=== PATIENT | female | born 1940 | race African-American/Black ===

== ENCOUNTER 2020-01-31 02:04 | Inpatient (IN) | payer OTHER, MEDICARE ==
--- NOTE | 2020-01-31 02:20 | ER Document Report ---
ED General - General TRAVEL OUTSIDE OF THE [place] IN LAST 30 DAYS: No <MARLENY BURROWS IV - Last Filed: 01/31/20 05:46> <EDDY MOONEY - Last Filed: 01/31/20 10:23> - General Chief Complaint: Respiratory Distress Stated Complaint: RESPIRATORY DISTRESS Time Seen by Provider: 01/31/20 02:17 Primary Care Provider: TWYLA PACE MD [Primary Care Provider] - Follow up as needed - HPI Context: Chief Complaint: [Respiratory distress] [79-year-old female presents via EMS on CPAP for respiratory distress. History is limited because patient is short of breath and on CPAP. EMS reports that when they arrived to the patient's house, patient's pulse ox was 56% and initially only went up to 67% on CPAP ] Symptoms began:[Unknown] Onset: [Unknown] Timing: [Unknown] Quality: [No known] Intensity: [Severe] Location: [Respiratory system] [The pain does not migrate to a new location.] Aggravating factors: Unknown Relieving factors: Unknown Positive SOB [Denies] nausea [Denies] vomiting [Denies] sweats [Denies] fever [Denies] cough [Denies] calf or leg swelling or pain (MARLENY BURROWS IV) - Related Data Allergies/Adverse Reactions: No Known Allergies Allergy (Unverified 09/22/15 13:32) Past Medical History - General Information source: Patient, Emergency Med Personnel - Social History Smoking Status: Never Smoker Family History: Reviewed & Not Pertinent - Past Medical History Cardiac Medical History: Reports: Hx Hypertension Denies: Hx Heart Attack Pulmonary Medical History: Denies: Hx Asthma Neurological Medical History: Denies: Hx Cerebrovascular Accident, Hx Seizures GI Medical History: Denies: Hx Hepatitis, Hx Hiatal Hernia, Hx Ulcer Infectious Medical History: Denies: Hx Hepatitis Past Surgical History: Reports: Hx Pacemaker. Denies: Hx Mastectomy, Hx Open Heart Surgery <MARLENY BURROWS IV - Last Filed: 01/31/20 05:46> Review of Systems - Review of Systems -: Yes ROS unobtainable due to patient's medical condition <MARLENY BURROWS IV - Last Filed: 01/31/20 05:46> Physical Exam <MARLENY BURROWS IV - Last Filed: 01/31/20 05:46> - Vital signs Vitals: Pulse Resp BP Pulse Ox 97 28 H 162/68 H 83 L 01/31/20 02:08 01/31/20 02:08 01/31/20 02:08 01/31/20 02:08 - Notes Notes: CONSTITUTIONAL [Vital signs reviewed, Patient is in obvious respiratory distress and is on CPAP , HEAD [Atraumatic, Normocephalic.] EYES [Eyes are normal to inspection, No discharge from eyes, Extraocular muscles intact, Sclera are normal, Conjunctiva are normal.] ENT [External ears normal to inspection, Nose examination normal, Mouth normal to inspection.] NECK [Normal ROM, No jugular venous distention, No meningeal signs, ] RESPIRATORY CHEST [Chest is nontender, diffuse rhonchi noted, positive tachypnea CARDIOVASCULAR Tachycardia no murmurs, Normal S1 S2, No rub, No gallop.] ABDOMEN [Abdomen is nontender, No pulsatile masses, No other masses, Bowel sounds normal, No distension, No peritoneal signs, No hernias.] BACK [There is no CVA Tenderness, There is no tenderness to palpation, Normal inspection.] UPPER EXTREMITY [Inspection normal, No cyanosis, No clubbing, No edema, LOWER EXTREMITY [Inspection normal, No cyanosis, No clubbing, No edema, No calf tenderness, NEURO [No focal motor deficits, No focal sensory deficits, Speech normal.] SKIN [Skin is warm, Skin is dry, Skin is normal color.] PSYCHIATRIC Anxious affect. ] (MARLENY BURROWS IV) Course - Laboratory Results Result Diagrams: 01/31/20 02:28 01/31/20 02:28 Critical Laboratory Results Reviewed: No Critical Results Attending or Supervising Physician who Reviewed Labs: MARLENY BURROWS IV - Radiology Results Critical Radiology Results Reviewed: Yes Attending or Supervising Physician who Reviewed Radiology: MARLENY BURROWS IV - Radiology read suggestive of bilateral infiltrates - Consults Dr. Eagle Time consulted: 05:40 - requested ct to r/o pe <MARLENY BURROWS IV - Last Filed: 01/31/20 05:46> - Laboratory Results Result Diagrams: 01/31/20 02:28 01/31/20 02:28 <EDDY MOONEY - Last Filed: 01/31/20 10:23> - Vital Signs Vital signs: Temp Pulse Resp BP Pulse Ox 97.9 F 80 16 139/62 H 99 01/31/20 06:00 01/31/20 09:00 01/31/20 09:00 01/31/20 09:00 01/31/20 09:00 - Laboratory Results Laboratory Results Interpreted: 01/31/20 01/31/20 01/31/20 02:20 02:28 02:28 RDW 14.5 H PT 30.6 H Carbonic Acid 1.44 H ABG pH 7.32 L ABG pCO2 47.9 H ABG HCO3 24.1 H ABG Total CO2 25.6 H Potassium BUN Est GFR ( Amer) Est GFR (MDRD) Non-Af Glucose AST ALT Alkaline Phosphatase NT-Pro-B Natriuret Pep Urine Protein Urine Blood Leukocyte Esterase Rfl 01/31/20 01/31/20 01/31/20 02:28 02:28 08:15 RDW PT Carbonic Acid ABG pH ABG pCO2 ABG HCO3 ABG Total CO2 Potassium 3.5 L BUN 24 H Est GFR ( Amer) 58 L Est GFR (MDRD) Non-Af 48 L Glucose 321 H AST 78 H ALT 52 H Alkaline Phosphatase 177 H NT-Pro-B Natriuret Pep 616 H Urine Protein 30 H Urine Blood SMALL H Leukocyte Esterase Rfl TRACE H - EKG Interpretation by Me Additional EKG results interpreted by me: 01/31/20 05:52 EKG obtained on 01/31/2020 at 0215 hrs. was interpreted by this MD. Findings ventricular paced rhythm, rate 91, nonspecific ST segments (MARLENY BURROWS IV) - Consults Dr. Eagle Reason for consultation: 01/31/20 05:54 Hypoxia and bilateral infiltrates (MARLENY BURROWS IV) Critical Care Note - Critical Care Note Total time excluding time spent on procedures (mins): 120 - Management of respiratory failure with hypoxia <MARLENY BURROWS IV - Last Filed: 01/31/20 05:46> Discharge <MARLENY BURROWS IV - Last Filed: 01/31/20 05:46> - Discharge Admitting Provider: Sheeba (Hospitalist) Unit Admitted: [facility] <EDDY MOONEY - Last Filed: 01/31/20 10:23> - Discharge Clinical Impression: Hypoxia Respiratory failure Qualifiers: Chronicity: unspecified Respiratory failure complication: unspecified whether with hypoxia or hypercapnia Qualified Code(s): J96.90 - Respiratory failure, unspecified, unspecified whether with hypoxia or hypercapnia Pneumonia Qualifiers: Pneumonia type: due to unspecified organism Laterality: bilateral Lung location : unspecified part of lung Qualified Code(s): J18.9 - Pneumonia, unspecified organism CHF (congestive heart failure) Qualifiers: Heart failure type: unspecified Heart failure chronicity: acute Qualified Code(s): I50.9 - Heart failure, unspecified Condition: Fair Disposition: ADMITTED INPATIENT Referrals: TWYLA PACE MD [Primary Care Provider] - Follow up as needed
[2020-01-31 02:42] LABS: HEMATOCRIT 39.1 % (36.0-47.0); HEMOGLOBIN 12.8 g/dL (12.0-15.5); MEAN CORPUSCULAR HEMOGLOBIN 29.8 pg (27.0-33.4); MEAN CORPUSCULAR HGB CONC 32.8 g/dL (32.0-36.0); MEAN CORPUSCULAR VOLUME 91 fl (80-97); PLATELET COUNT 205 10^3/uL (150-450); RED CELL DISTRIBUTION WIDTH 14.5 % (11.5-14.0); WHITE BLOOD COUNT 6.5 10^3/uL (4.0-10.5)
[2020-01-31 02:47] LABS: INTERNATIONAL RATION (INR) 2.95; PROTHROMBIN TIME 30.6 SEC (11.4-15.4)
[2020-01-31 02:56] LABS: ALBUMIN 3.7 g/dL (3.5-5.0); ALKALINE PHOSPHATASE 177 U/L (38-126); ANION GAP 12 (5-19); ASPARTATE AMINO TRANSFERASE 78 U/L (14-36); BILIRUBIN,DIRECT 0.1 mg/dL (0.0-0.4); BILIRUBIN,TOTAL 1.3 mg/dL (0.2-1.3); BLOOD UREA NITROGEN 24 mg/dL (7-20); CALCIUM 8.9 mg/dL (8.4-10.2); CARBON DIOXIDE 24 mmol/L (22-30); CHLORIDE 104 mmol/L (98-107); GLUCOSE 321 mg/dL (75-110); POTASSIUM 3.5 mmol/L (3.6-5.0); TOTAL PROTEIN 7.3 g/dL (6.3-8.2)
--- NOTE | 2020-01-31 03:27 | RADIOLOGY REPORT (SQ) ---
CHEST X-RAY 1 VIEW on 01/31/2020 at 2:37 AM CLINICAL INDICATION: Shortness of breath COMPARISON: None FINDINGS: 2-lead left subclavian pacemaker is noted in place. Borderline cardiomegaly is noted. There are bilateral interstitial and airspace opacities worse in the lower lungs consistent with edema and/or pneumonia and differential diagnosis would include viral infections. Hilar and mediastinal contours are within normal limits. Degenerative changes are noted in the spine. IMPRESSION: Bilateral opacities consistent with edema and/or pneumonia and differential diagnosis would include viral infections.
[2020-01-31 03:29] LABS: ABSOLUTE MONOCYTES # (MANUAL) 0.5 10^3/uL (0.1-1.4); BASOPHILS % (MANUAL) 0 % (0-2); EOSINOPHILS % (MANUAL) 0 % (0-6); LYMPHOCYTES % (MANUAL) 28 % (13-45); MONOCYTES % (MANUAL) 8 % (3-13); SEGMENTED NEUTROPHILS % (MAN) 62 % (42-78); TOTAL CELLS COUNTED 100
[2020-01-31 03:31] LABS: ANISOCYTOSIS SLIGHT; PLATELET COMMENT ADEQUATE
[2020-01-31 03:33] LABS: OVALOCYTES SLIGHT; TARGET CELLS SLIGHT
[2020-01-31] MEDS ORDERED: NORMAL SALINE IV PRN (03:42)
[2020-01-31] MEDS ORDERED: PIPERACILLIN/TAZOBACTAM 3.375 GM VIAL IV ONE ×2 (03:42→10:35)
[2020-01-31 03:54] LABS: ARTERIAL BLOOD BASE EXCESS -2.3 mmol/L; ARTERIAL BLOOD FIO2 100%; ARTERIAL BLOOD H2CO3 1.44 mmol/L (1.05-1.35); ARTERIAL BLOOD HCO3 24.1 mmol/L (20-24); ARTERIAL BLOOD O2 SATURATION 96.2 % (94-98); ARTERIAL BLOOD PCO2 47.9 mmHg (35-45); ARTERIAL BLOOD PH 7.32 (7.35-7.45); ARTERIAL BLOOD TOTAL CO2 25.6 mmol/L (21-25)
--- NOTE | 2020-01-31 07:55 | RADIOLOGY REPORT (SQ) ---
EXAM DESCRIPTION: CT CHEST ANGIOGRAPHY WITHOUT THEN WITH IV CONTRAST COMPLETED DATE/TME: 01/31/2020 06:27 CLINICAL HISTORY: 79 years Female, hypoxia Comparison: CR, same day. Technique: IV contrast. Coronal and sagittal reformat. 3d reconstruction. This exam was performed according to our departmental dose-optimization program, which includes automated exposure control, adjustment of the mA and/or kV according to patient size and/or use of iterative reconstruction technique.[facility]: Dose Right [facility]: CareDose [facility]: Dose Right [facility]: Teradose 4D [facility]: myWebRoom LIMITATIONS: Quality of pulmonary arteriogram: Suboptimal. Findings: Moderate confluent hazy, patchy, subsolid nodular, and interstitial opacities of the mid-lower lungs probably and small bilateral pleural effusions probably due to pulmonary edema. Left cardiac stimulator with leads. Renal scar/atrophy. No pulmonary embolus. No right ventricular strain. Likely benign, low-attenuation hepatic lesion(s) not definitively characterized. Mild T12 anterior vertebral compression deformity. Inferior neck, axillae, mediastinum, airway, lymphatics, heart, vasculature, upper abdomen, and musculoskeleton appear otherwise unremarkable. Impression: 1. Moderate confluent hazy, patchy, subsolid nodular, and interstitial opacities of the mid-lower lungs probably and small bilateral pleural effusions probably due to pulmonary edema.Differential diagnosis includes pulmonary edema, multifocal pneumonia, and chronic interstitial lung disease. Imaging features can be seen with (COVID-19 or viral) pneumonia, though are nonspecific and can occur with a variety of infectious and noninfectious processes. [PneInd] Recommend CR/CT surveillance including at 7-12 weeks following initiation of any clinically warranted therapy. 2. No pulmonary embolus. No acute cardiopulmonary findings.
[2020-01-31 09:02] LABS: APPEARANCE,URINE SLIGHTLY-CLOUDY; BILIRUBIN,URINE NEGATIVE (NEGATIVE); COLOR,URINE YELLOW; GLUCOSE, URINE NEGATIVE (NEGATIVE); KETONES,URINE NEGATIVE (NEGATIVE); PROTEIN,URINE 30 mg/dL (NEGATIVE); UROBILINOGEN,URINE NEGATIVE mg/dL (<2.0)
[2020-01-31] MEDS ORDERED: FUROSEMIDE INJ/PF 20 MG/2 ML SDV IV ONE (09:45)
[2020-01-31] MEDS ORDERED: ONDANSETRON HCL INJ/PF 4 MG/2 ML SDV IV PRN (10:27)
[2020-01-31] MEDS ORDERED: DEXTROSE 50%-WATER 25 GM/50 ML DISP.SYRIN IV PRN ×2 (10:32)
[2020-01-31] MEDS ORDERED: DEXTROSE 40% GEL 15 GM TUBE PO PRN ×2 (10:32)
[2020-01-31] MEDS ORDERED: GLUCAGON,HUMAN RECOMB 1 MG INJ IM PRN (10:32)
[2020-01-31] MEDS ORDERED: IPRATROPIUM/ALBUTEROL 0.5-2.5 MG/3 ML AMPUL NEB PRN (10:36)
[2020-01-31] MEDS ORDERED: PIPERACILLIN/TAZOBACTAM 3.375 GM VIAL IV SCH (10:45)
[2020-01-31] MEDS ORDERED: IPRATROPIUM/ALBUTEROL 0.5-2.5 MG/3 ML AMPUL NEB ONE (11:00)
[2020-01-31 11:13] LABS: A TYPE INFLUENZA AG NEGATIVE (NEGATIVE); B INFLUENZA AG NEGATIVE (NEGATIVE)
--- NOTE | 2020-01-31 11:20 | PDOC H&P ---
History of Present Illness Admission Date/PCP: 01/31/20 10:50 TWYLA PACE MD Patient complains of: Came in with shortness of breath History of Present Illness: RYAN DUGGAN is a 79 year old female history of hypertension diabetes mellitus, coronary artery disease with a blockage, pacemaker, obesity to the emergency room with complaints of increasing shortness of breath. Pulse ox is in the 50s at the time of arrival she was placed on BiPAP. CT of the chest was done negative for PE but that shows groundglass opacifications and a questionable pulmonary edema recommendation to rule out Covid. 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 INR is 2.95. At the time of my examination patient is on BiPAP she does not want to be on BiPAP anymore. Patient was given IV fluids initially then she was given Lasix. sta rted on IV Zosyn. Past Medical History Cardiac Medical History: Reports: Hypertension Denies: Myocardial Infarction Pulmonary Medical History: Denies: Asthma Neurological Medical History: Denies: Seizures Endocrine Medical History: Reports: None Renal/ Medical History: Reports: None Malignancy Medical History: Reports: None GI Medical History: Denies: Hepatitis, Hiatal Hernia Musculoskeltal Medical History: Reports: None Skin Medical History: Reports: None Psychiatric Medical History: Reports: None Traumatic Medical History: Reports: None Hematology: Denies: Anemia, Sickle Cell Disease Infectious Medical History: Reports: None Past Surgical History Past Surgical History: Reports: Pacemaker Denies: Amputation, Mastectomy Social History Information Source: Patient Smoking Status: Never Smoker Electronic Cigarette use?: No Hx Recreational Drug Use: No Hx Prescription Drug Abuse: No - Advance Directive Resuscitation Status: Full Code Family History Family History: Reviewed & Not Pertinent Parental Family History Reviewed: Yes - Diabetes hypertension Children Family History Reviewed: Yes Sibling(s) Family History Reviewed.: Yes Medication/Allergy Home Medications: Amlodipine Besylate [Norvasc 2.5 mg Tablet] 2.5 mg PO DAILY 09/22/15 Atorvastatin Calcium [Lipitor 20 mg Tablet] 20 mg PO QHS 09/22/15 Cholecalciferol (Vitamin D3) [Vitamin D3 5000 unit Capsule] 5,000 unit PO DAILY 09/22/15 Esomeprazole Magnesium [Nexium] 40 mg PO DAILY 09/22/15 Fexofenadine HCl [Deanne] 180 mg PO PRN PRN 09/22/15 Fluticasone Propionate [Flovent Diskus 50 mcg] 1 puff IH PRN PRN 09/22/15 Glimepiride [Amaryl] 2 mg PO DAILY 09/22/15 Guaifenesin [Mucinex] 1,200 mg PO 09/22/15 Hydrochlorothiazide [Hydrodiuril 12.5 mg Capsule] 12.5 mg PO QAM 09/22/15 Latanoprost [Xalatan 0.005% Oph Soln 2.5 ml] 1 drop OP QHS 09/22/15 Lisinopril [Prinivil 40 mg Tablet] 40 mg PO DAILY 09/22/15 Metformin HCl [Glucophage XR 500 mg Tablet] 500 mg PO QPM 09/22/15 Sotalol HCl [Sotalol] 80 mg PO DAILY 09/22/15 Warfarin Sodium [Coumadin 5 mg Tablet] 5 mg PO QHS 09/22/15 Allergies/Adverse Reactions: No Known Allergies Allergy (Unverified 09/22/15 13:32) Review of Systems Constitutional: ABSENT: fever(s) Eyes: ABSENT: visual disturbances Ears: ABSENT: hearing changes Nose, Mouth, and Throat: ABSENT: sore throat Cardiovascular: ABSENT: chest pain, dyspnea on exertion, edema, orthropnea, palpitations Respiratory: PRESENT: dyspnea Gastrointestinal: ABSENT: abdominal pain, constipation, diarrhea, hematemesis, hematochezia, nausea, vomiting Genitourinary: ABSENT: dysuria, hematuria Integumentary: ABSENT: rash, wounds Neurological: ABSENT: abnormal gait, abnormal speech, confusion, dizziness, focal weakness, syncope Psychiatric: ABSENT: anxiety, depression, homidical ideation, suicidal ideation Endocrine: ABSENT: cold intolerance, heat intolerance, polydipsia, polyuria Hematologic/Lymphatic: ABSENT: easy bleeding, easy bruising Physical Exam Vital Signs: Temp Pulse Resp BP Pulse Ox 97.9 F 80 16 139/62 H 99 01/31/20 06:00 01/31/20 09:00 01/31/20 09:00 01/31/20 09:00 01/31/20 09:00 Intake & Output 01/30/20 01/31/20 02/01/20 06:59 06:59 06:59 Intake Total 1642 Balance 1642 Weight 117.48 kg General appearance: PRESENT: no acute distress, obese Head exam: PRESENT: atraumatic Eye exam: PRESENT: PERRLA Ear exam: PRESENT: normal external ear exam Teeth exam: PRESENT: poor dentation Neck exam: ABSENT: carotid bruit, JVD, lymphadenopathy, thyromegaly Respiratory exam: PRESENT: decreased breath sounds, other - Pacemaker on the left side of the chest Cardiovascular exam: PRESENT: RRR. ABSENT: diastolic murmur, rubs, systolic murmur GI/Abdominal exam: PRESENT: normal bowel sounds, soft. ABSENT: distended, guarding, mass, organolmegaly, rebound, tenderness Rectal exam: PRESENT: deferred Extremities exam: PRESENT: full ROM. ABSENT: calf tenderness, clubbing, pedal edema Neurological exam: PRESENT: alert, awake, oriented to person, oriented to place, oriented to time, oriented to situation, CN II-XII grossly intact. ABSENT: motor sensory deficit Psychiatric exam: PRESENT: appropriate affect, normal mood. ABSENT: homicidal ideation, suicidal ideation Results Laboratory Results: 01/31/20 02:28 01/31/20 02:28 01/31/20 01/31/20 01/31/20 02:20 02:28 02:28 WBC 6.5 RBC 4.30 Hgb 12.8 Hct 39.1 MCV 91 MCH 29.8 MCHC 32.8 RDW 14.5 H Plt Count 205 Seg Neutrophils % Not Reportable Carbonic Acid 1.44 H HCO3/H2CO3 Ratio 16:1 ABG pH 7.32 L ABG pCO2 47.9 H ABG pO2 90.0 ABG HCO3 24.1 H ABG O2 Saturation 96.2 ABG Base Excess -2.3 FiO2 100% Sodium 139.6 Potassium 3.5 L Chloride 104 Carbon Dioxide 24 Anion Gap 12 BUN 24 H Creatinine 1.11 Est GFR ( Amer) 58 L Glucose 321 H Lactic Acid Calcium 8.9 Total Bilirubin 1.3 AST 78 H Alkaline Phosphatase 177 H Total Protein 7.3 Albumin 3.7 Urine Color Urine Appearance Urine pH Ur Specific [employer] [place] Urine Protein Urine Glucose (UA) Urine Ketones Urine Blood Urine RBC (Auto) 01/31/20 01/31/20 01/31/20 03:55 06:39 08:15 WBC RBC Hgb Hct MCV MCH MCHC RDW Plt Count Seg Neutrophils % Carbonic Acid HCO3/H2CO3 Ratio ABG pH ABG pCO2 ABG pO2 ABG HCO3 ABG O2 Saturation ABG Base Excess FiO2 Sodium Potassium Chloride Carbon Dioxide Anion Gap BUN Creatinine Est GFR ( Amer) Glucose Lactic Acid 1.9 1.6 Calcium Total Bilirubin AST Alkaline Phosphatase Total Protein Albumin Urine Color YELLOW Urine Appearance SLIGHTLY-CLOUDY Urine pH 5.0 Ur Specific [place] 1.040 Urine Protein 30 H Urine Glucose (UA) NEGATIVE Urine Ketones NEGATIVE Urine Blood SMALL H Urine RBC (Auto) 2 01/31/20 01/31/20 02:28 02:28 Troponin I < 0.012 NT-Pro-B Natriuret Pep 616 H Impressions: Chest X-Ray 01/31/20 02:18 IMPRESSION: Bilateral opacities consistent with edema and/or pneumonia and differential diagnosis would include viral infections. Assessment and Plan - Diagnosis (1) Respiratory failure Qualifiers: Chronicity: unspecified Respiratory failure complication: unspecified whether with hypoxia or hypercapnia Qualified Code(s): J96.90 - Respiratory failure, unspecified, unspecified whether with hypoxia or hypercapnia Is this a current diagnosis for this admission?: Yes Plan: 01/31/2020-patient is admitted for acute on chronic hypoxic respiratory failure. Patient is requiring BiPAP in the ER. Now on 6 L of nasal cannula. CT of the chest is negative for PE but suggestive of groundglass opacifications, pulmonary edema. She was given IV Lasix, IV antibiotic therapy. To continue her home medications. To hold Coumadin because INR is 2.95. To check PT/INR tomorrow and to restart warfarin based on the results. Daily weight is requested. To co ntinue oxygen supplementations. Serial troponins are requested. COVID-19 test is pending. Patient does not want to be admitted at this time she wants to wait daughter to come in. Will make a decision whether to stay here prefers to go to another hospital. (2) Pneumonia Qualifiers: Pneumonia type: due to unspecified organism Laterality: bilateral Lung location: unspecified part of lung Qualified Code(s): J18.9 - Pneumonia, unspecified organism Is this a current diagnosis for this admission?: Yes Plan: 01/31/2020-patient is going to be admitted to [facility] as inpatient. Started on IV Zosyn. Blood cultures urine cultures are requested. To continue oxygen supplementations. COVID-19 testing is pending at this time. (3) Diabetes Is this a current diagnosis for this admission?: No Plan: 01/31/2020-patient has history of type 2 diabetes mellitus. To hold metformin and to continue glimepiride, started insulin sliding scale before meals and at bedtime. (4) Obesity (BMI 30-39.9) Is this a current diagnosis for this admission?: No Plan: 01/31/2020-patient BMI is more than 38. Diet exercise weight loss lifestyle modifications discussed with the patient, dietary consult was provided. (5) HTN (hypertension) Is this a current diagnosis for this admission?: No Plan: 01/31/2020-patient has a history of chronic essential hypertension to restart home medications and she is also on Lasix 40 mg twice daily. Patient is on low- carb low-sodium diet. - Time Anticipated Discharge Disposition: Home, Self Care Anticipated Discharge Timeframe: within 48 hours
[2020-01-31 11:21] LABS: URINE AMPHETAMINES SCREEN NEGATIVE; URINE BARBITURATES SCREEN NEGATIVE; URINE BENZODIAZEPINES SCREEN NEGATIVE; URINE COCAINE SCREEN NEGATIVE; URINE MARIJUANA (THC) SCREEN NEGATIVE; URINE METHADONE SCREEN NEGATIVE; URINE PHENCYCLIDINE SCREEN NEGATIVE
--- NOTE | 2020-01-31 12:12 | EKG REPORT ---
SEVERITY:- ABNORMAL ECG - VENTRICULAR-PACED COMPLEXES PROBABLE LEFT ATRIAL ABNORMALITY : Confirmed by: Rae Bocanegra MD 31-Jan-2020 12:11:42
[2020-01-31] MEDS: INSULIN REG, HUMAN 100 UNIT/ML 3 ML VIAL (PYX) SUBCUT SCH ×3 (12:37→22:06)
[2020-01-31] MEDS: VANCOMYCIN HCL 1,500 MG in DEXTROSE 5%-WATER 250 ML IV SCH (12:38)
[2020-01-31 13:32] LABS: ARTERIAL BLOOD BASE EXCESS -0.3 mmol/L; ARTERIAL BLOOD FIO2 ROOM AIR; ARTERIAL BLOOD H2CO3 1.03 mmol/L (1.05-1.35); ARTERIAL BLOOD HCO3 23.1 mmol/L (20-24); ARTERIAL BLOOD O2 SATURATION 92.2 % (94-98); ARTERIAL BLOOD PCO2 34.1 mmHg (35-45); ARTERIAL BLOOD PH 7.45 (7.35-7.45); ARTERIAL BLOOD PO2 59.7 mmHg (80-100); ARTERIAL BLOOD TOTAL CO2 24.2 mmol/L (21-25)
[2020-01-31] MEDS: PIPERACILLIN SODIUM/TAZOBACTAM 3.375 GM in NORMAL SALINE 100 ML IV SCH ×2 (17:14→21:17)
[2020-01-31] MEDS: PANTOPRAZOLE SODIUM 40 MG TABLET.DR PO SCH (17:15)
[2020-01-31] MEDS ORDERED: FUROSEMIDE INJ/PF 40 MG/4 ML SDV IV SCH (18:00)
[2020-01-31] MEDS: ACETAMINOPHEN 325 MG TABLET PO PRN (21:16)
[2020-02-01] MEDS: PANTOPRAZOLE SODIUM 40 MG TABLET.DR PO SCH ×2 (05:06→17:06)
[2020-02-01] MEDS: PIPERACILLIN SODIUM/TAZOBACTAM 3.375 GM in NORMAL SALINE 100 ML IV SCH ×3 (05:06→21:20)
[2020-02-01 06:22] LABS: ABSOLUTE LYMPHOCYTES (AUTO) 1.9 10^3/uL (0.5-4.7); ABSOLUTE MONOCYTES (AUTO) 1.1 10^3/uL (0.1-1.4); ABSOLUTE NEUT (AUTO) 3.4 10^3/uL (1.7-8.2); BASOPHILS % (AUTO) 0.4 % (0-2); EOSINOPHILS % (AUTO) 0.3 % (0-6); HEMATOCRIT 33.1 % (36.0-47.0); HEMOGLOBIN 11.1 g/dL (12.0-15.5); LYMPHOCYTES % (AUTO) 29.4 % (13-45); MEAN CORPUSCULAR HEMOGLOBIN 30.3 pg (27.0-33.4); MEAN CORPUSCULAR HGB CONC 33.5 g/dL (32.0-36.0); MEAN CORPUSCULAR VOLUME 90 fl (80-97); MONOCYTES % (AUTO) 17.1 % (3-13); PLATELET COUNT 177 10^3/uL (150-450); RED BLOOD COUNT 3.66 10^6/uL (3.72-5.28); RED CELL DISTRIBUTION WIDTH 14.6 % (11.5-14.0); SEGMENTED NEUTROPHILS % (AUTO) 52.8 % (42-78); TOTAL CELLS COUNTED % (AUTO) 100 %; WHITE BLOOD COUNT 6.4 10^3/uL (4.0-10.5)
[2020-02-01 06:45] LABS: INTERNATIONAL RATION (INR) 2.59; PROTHROMBIN TIME 27.7 SEC (11.4-15.4)
[2020-02-01] MEDS ORDERED: FEXOFENADINE HCL 180 MG PO PRN (06:55)
[2020-02-01 06:57] LABS: ALBUMIN 3.1 g/dL (3.5-5.0); ALKALINE PHOSPHATASE 104 U/L (38-126); ANION GAP 7 (5-19); ASPARTATE AMINO TRANSFERASE 32 U/L (14-36); BILIRUBIN,TOTAL 2.1 mg/dL (0.2-1.3); BLOOD UREA NITROGEN 21 mg/dL (7-20); CALCIUM 8.5 mg/dL (8.4-10.2); CARBON DIOXIDE 30 mmol/L (22-30); CHLORIDE 103 mmol/L (98-107); CHOLESTEROL 117.44 mg/dL (0-200); GLUCOSE 152 mg/dL (75-110); POTASSIUM 3.5 mmol/L (3.6-5.0); TOTAL PROTEIN 6.4 g/dL (6.3-8.2); TRIGLYCERIDES 82 mg/dL (<150)
[2020-02-01] MEDS ORDERED: WARFARIN SODIUM 7.5 MG PO SCH (07:00)
[2020-02-01 07:08] LABS: DIRECT LDL 44 mg/dL (<100)
--- NOTE | 2020-02-01 08:37 | PDOC PROGRESS REPORT ---
Subjective Date:: 02/01/20 Subjective:: 79 year old female history of hypertension diabetes mellitus, coronary artery di sease with a blockage, pacemaker, obesity to the emergency room with complaints of increasing shortness of breath. Pulse ox is in the 50s at the time of arrival she was placed on BiPAP. CT of the chest was done negative for PE but that shows groundglass opacifications and a questionable pulmonary edema recommendation to rule out Covid. 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 INR is 2.95. At the time of my examination patient is on BiPAP she does not want to be on BiPAP anymore. Patient was given IV fluids initially then she was given Lasix. started on IV Zosyn. 02/01/[id number]-jtnl-old female with multiple medical problems admitted with acute hypoxic respiratory failure. COVID-19 is negative. BNP is improving. Chest x- ray suggestive of bilateral pulmonary edema, bilateral groundglass opacifications. Presently on IV Zosyn. Afebrile pulse ox is 96% room air this morning. BNP came down to 192. pt in the bed communicating well. No problems no complaints expressed by the patient. Reason For Visit: CHF EXACERBATION Physical Exam Vital Signs: Temp Pulse Resp BP Pulse Ox 98.0 F 81 18 124/55 L 96 02/01/20 03:28 02/01/20 07:00 02/01/20 03:28 02/01/20 03:28 02/01/20 03:28 Intake & Output 01/31/20 02/01/20 02/02/20 06:59 06:59 06:59 Intake Total 2236 Output Total 875 Balance 1361 Weight 117.48 kg 112.8 kg General appearance: PRESENT: no acute distress, cooperative Head exam: PRESENT: normocephalic Eye exam: PRESENT: PERRLA Ear exam: PRESENT: normal external ear exam Mouth exam: PRESENT: neck supple Teeth exam: PRESENT: poor dentation Neck exam: ABSENT: carotid bruit, JVD, lymphadenopathy, thyromegaly Respiratory exam: PRESENT: clear to auscultation jeromy, other - Pacemaker present on the left side of the chest.. ABSENT: rales, rhonchi, wheezes Cardiovascular exam: PRESENT: RRR. ABSENT: diastolic murmur, rubs, systolic murmur Vascular exam: PRESENT: normal capillary refill GI/Abdominal exam: PRESENT: normal bowel sounds, soft. ABSENT: distended, guarding, mass, organolmegaly, rebound, tenderness Rectal exam: PRESENT: deferred Extremities exam: PRESENT: full ROM. ABSENT: calf tenderness, clubbing, pedal edema Neurological exam: PRESENT: alert, awake, oriented to person, oriented to place, oriented to time, oriented to situation, CN II-XII grossly intact. ABSENT: motor sensory deficit Psychiatric exam: PRESENT: appropriate affect, normal mood. ABSENT: homicidal ideation, suicidal ideation Results Laboratory Results: 02/01/20 05:36 02/01/20 05:36 01/31/20 01/31/20 02/01/20 08:15 13:07 05:36 WBC 6.4 RBC 3.66 L Hgb 11.1 L Hct 33.1 L MCV 90 MCH 30.3 MCHC 33.5 RDW 14.6 H Plt Count 177 Seg Neutrophils % 52.8 Carbonic Acid 1.03 L HCO3/H2CO3 Ratio 22:1 ABG pH 7.45 ABG pCO2 34.1 L ABG pO2 59.7 L ABG HCO3 23.1 ABG O2 Saturation 92.2 L ABG Base Excess -0.3 FiO2 ROOM AIR Sodium Potassium Chloride Carbon Dioxide Anion Gap BUN Creatinine Est GFR ( Amer) Glucose Calcium Magnesium Total Bilirubin AST Alkaline Phosphatase Total Protein Albumin Triglycerides Cholesterol LDL Cholesterol Direct VLDL Cholesterol HDL Cholesterol TSH Urine Color YELLOW Urine Appearance SLIGHTLY-CLOUDY Urine pH 5.0 Ur Specific [place] 1.040 Urine Protein 30 H Urine Glucose (UA) NEGATIVE Urine Ketones NEGATIVE Urine Blood SMALL H Urine RBC (Auto) 2 02/01/20 02/01/20 05:36 05:36 WBC RBC Hgb Hct MCV MCH MCHC RDW Plt Count Seg Neutrophils % Carbonic Acid HCO3/H2CO3 Ratio ABG pH ABG pCO2 ABG pO2 ABG HCO3 ABG O2 Saturation ABG Base Excess FiO2 Sodium 140.3 Potassium 3.5 L Chloride 103 Carbon Dioxide 30 Anion Gap 7 BUN 21 H Creatinine 1.10 Est GFR ( Amer) 58 L Glucose 152 H Calcium 8.5 Magnesium 1.6 Total Bilirubin 2.1 H AST 32 Alkaline Phosphatase 104 Total Protein 6.4 Albumin 3.1 L Triglycerides 82 Cholesterol 117.44 LDL Cholesterol Direct 44 VLDL Cholesterol 16.0 HDL Cholesterol 49 TSH 0.64 Urine Color Urine Appearance Urine pH Ur Specific [place] Urine Protein Urine Glucose (UA) Urine Ketones Urine Blood Urine RBC (Auto) 01/31/20 01/31/20 01/31/20 02:28 02:28 12:43 Troponin I < 0.012 0.040 NT-Pro-B Natriuret Pep 616 H 01/31/20 01/31/20 02/01/20 15:45 22:35 05:36 Troponin I 0.032 0.024 NT-Pro-B Natriuret Pep 192 Impressions: Chest X-Ray 01/31/20 02:18 IMPRESSION: Bilateral opacities consistent with edema and/or pneumonia and differential diagnosis would include viral infections. Assessment and Plan - Diagnosis (1) Respiratory failure Qualifiers: Chronicity: unspecified Respiratory failure complication: unspecified whether with hypoxia or hypercapnia Qualified Code(s): J96.90 - Respiratory failure, unspecified, unspecified whether with hypoxia or hypercapnia Is this a current diagnosis for this admission?: Yes Plan: 01/31/2020-patient is admitted for acute on chronic hypoxic respiratory failure. Patient is requiring BiPAP in the ER. Now on 6 L of nasal cannula. CT of the chest is negative for PE but suggestive of groundglass opacifications, pulmonary edema. She was given IV Lasix, IV antibiotic therapy. To continue her home medications. To hold Coumadin because INR is 2.95. To check PT/INR tomorrow and to restart warfarin based on the results. Daily weight is requested. To continue oxygen supplementations. Serial troponins are requested. COVID-19 test is pending. Patient does not want to be admitted at this time she wants to wait daughter to come in. Will make a decision whether to stay here prefers to go to another hospital. 02/01/[id number]-wqlh-old female admitted with acute hypoxic respiratory failure. COVID-[address] of the chest is negative for PE but suggestive of groundglass opacifications and pulmonary edema. Pulse ox is 96% room air this morning vital signs are stable. Echocardiogram report is pending. (2) Pneumonia Qualifiers: Pneumonia type: due to unspecified organism Laterality: bilateral Lung location: unspecified part of lung Qualified Code(s): J18.9 - Pneumonia, unspecified organism Is this a current diagnosis for this admission?: Yes Plan: 01/31/2020-patient is going to be admitted to [facility] as inpatient. Started on IV Zosyn. Blood cultures urine cultures are requested. To continue oxygen supplementations. COVID-19 testing is pending at this time. 02/01/[id number]-[id number]-04 testing is negative. Patient is on IV Zosyn. Blood cu ltures are pending. Pulse ox is 96% room air patient is doing well. (3) Diabetes Is this a current diagnosis for this admission?: No Plan: 01/31/2020-patient has history of type 2 diabetes mellitus. To hold metformin and to continue glimepiride, started insulin sliding scale before meals and at bedtime. 02/01/2020-blood sugar this morning is 158. To continue glimepiride, continue saline sliding scale before meals and at bedtime. Hemoglobin A1c 6.8. (4) Obesity (BMI 30-39.9) Is this a current diagnosis for this admission?: No Plan: 01/31/2020-patient BMI is more than 38. Diet exercise weight loss lifestyle modifications discussed with the patient, dietary consult was provided. (5) HTN (hypertension) Is this a current diagnosis for this admission?: No Plan: 01/31/2020-patient has a history of chronic essential hypertension to restart home medications and she is also on Lasix 40 mg twice daily. Patient is on low- carb low-sodium diet. 02/01/2020-blood pressure is 124/55. Plan is to resume the home medications at this time. - Time Anticipated Discharge Disposition: Home, Self Care Anticipated Discharge Timeframe: within 48 hours
[2020-02-01] MEDS ORDERED: LORATADINE 10 MG TABLET PO PRN (09:16)
[2020-02-01 10:00] LABS: HEMATOCRIT 34.4 % (36.0-47.0); HEMOGLOBIN 11.6 g/dL (12.0-15.5); MEAN CORPUSCULAR HEMOGLOBIN 30.3 pg (27.0-33.4); MEAN CORPUSCULAR HGB CONC 33.7 g/dL (32.0-36.0); MEAN CORPUSCULAR VOLUME 90 fl (80-97); PLATELET COUNT 191 10^3/uL (150-450); RED BLOOD COUNT 3.82 10^6/uL (3.72-5.28); RED CELL DISTRIBUTION WIDTH 14.5 % (11.5-14.0); WHITE BLOOD COUNT 6.7 10^3/uL (4.0-10.5)
[2020-02-01] MEDS ORDERED: GLIMEPIRIDE 2 MG PO SCH (10:00)
[2020-02-01] MEDS ORDERED: GUAIFENESIN 1200 MG PO SCH (10:00)
[2020-02-01] MEDS ORDERED: VANCOMYCIN HCL INJ 1000 MG VIAL IV SCH (10:00)
[2020-02-01] MEDS ORDERED: CHOLECALCIFEROL PO SCH (10:00)
[2020-02-01] MEDS ORDERED: LISINOPRIL 40 MG PO SCH (10:00)
[2020-02-01] MEDS: INSULIN REG, HUMAN 100 UNIT/ML 3 ML VIAL (PYX) SUBCUT SCH ×4 (11:04→21:14)
[2020-02-01] MEDS: LISINOPRIL 10 MG TABLET PO SCH (11:55)
[2020-02-01] MEDS: GUAIFENESIN 600 MG TABLET.SA PO SCH (11:55)
[2020-02-01] MEDS: GLIMEPIRIDE 4 MG TABLET PO SCH (11:55)
[2020-02-01] MEDS: FUROSEMIDE INJ/PF 40 MG/4 ML SDV IV SCH (11:55)
[2020-02-01] MEDS: HYDROCHLOROTHIAZIDE 12.5 MG TABLET PO SCH (11:55)
[2020-02-01] MEDS: CHOLECALCIFEROL (D3) 1,000 UNIT (25 MCG) TABLET PO SCH (11:56)
[2020-02-01] MEDS: SOTALOL HCL 80 MG TABLET PO SCH (11:56)
[2020-02-01] MEDS: AMLODIPINE BESYLATE 10 MG TABLET PO SCH (11:56)
[2020-02-01] MEDS: VANCOMYCIN HCL 1,500 MG in DEXTROSE 5%-WATER 250 ML IV SCH (12:17)
[2020-02-01 17:12] LABS: APPEARANCE,URINE CLEAR; BILIRUBIN,URINE NEGATIVE (NEGATIVE); COLOR,URINE STRAW; GLUCOSE, URINE NEGATIVE (NEGATIVE); KETONES,URINE NEGATIVE (NEGATIVE); LEUKOCYTE ESTERASE,URINE TRACE (NEGATIVE); NITRITE,URINE NEGATIVE (NEGATIVE); PROTEIN,URINE NEGATIVE (NEGATIVE); URINE SPECIFIC GRAVITY 1.009; UROBILINOGEN,URINE NEGATIVE mg/dL (<2.0)
--- NOTE | 2020-02-01 17:30 | XCELERA REPORT ---
[address] [address] Transthoracic Echocardiogram Report Name: RYAN DUGGAN V Age: 79 yrs Gender: Female : 1940 Patient Status: Inpatient Patient Location: [address] [place] [address] Study Date: 02/01/2020 11:04 AM Height: 69 in Weight: 259 lb BSA: 2.3 m2 Procedure: A two-dimensional transthoracic echocardiogram with color flow and Doppler was performed. The study was technically difficult with many images being suboptimal in quality. Reason For Study: chf History: CHF. Ordering Physician: JUSTA MONZON Performed By: Falguni Beckham Interpretation Summary The left ventricle is normal in size. There is mild concentric left ventricular hypertrophy. LV EF is Greater than 65% Left ventricular systolic function is normal. Doppler measurements suggest impaired left ventricular relaxation, which is associated with grade I/IV or mild diastolic dysfunction The left ventricular wall motion is normal. There is no thrombus. No ASD,VSD , or PFO seen. The right ventricle is normal in size and function. The right ventricle is not well visualized secondary to technical limitations The right atrium is normal. The left atrium is mildly dilated. There is mild to moderate mitral annular calcification. Calcified mitral valve leadlet tips. There is no evidence of mitral valve prolapse. There is no vegetation seen on the mitral valve. There is mild mitral stenosis There is a trace amount of mitral regurgitation There is no aortic valve stenosis There is aortic sclerosis without aortic stenosis. There is no LVOT obstruction. There is a trace amount of aortic regurgitation There is no tricuspid stenosis. There is a trace to mild amount of tricuspid regurgitation There is mild pulmonary hypertension by echo RVSP is 38 to 43 mm of Hg , with RA mean of 5 to 10. There is no pulmonic valvular stenosis. There is a trace amount of pulmonic regurgitation The aortic root is not well visualized. The aortic root is normal size. The inferior vena cava appeared normal and decreased > 50% with respiration (RAP 5-10 mmHg) There is no pericardial effusion. MMode/2D Measurements & Calculations RVDd: 3.3 cm LVIDd: 5.7 cm FS: 40.3 % Ao root diam: 2.8 cm IVSd: 1.2 cm LVIDs: 3.4 cm EDV(Teich): 161.3 ml Ao root area: 6.3 cm2 LVPWd: 1.2 cm ESV(Teich): 47.9 ml LA dimension: 4.3 cm EF(Teich): 70.3 % Doppler Measurements & Calculations MV E max jade: MV P1/2t max jade: Ao V2 max: LV V1 max P.6 cm/sec 111.6 cm/sec 140.0 cm/sec 3.5 mmHg MV A max jade: MV P1/2t: 67.5 msec Ao max PG: LV V1 max: 155.0 cm/sec MVA(P1/2t): 3.3 cm2 7.8 mmHg 93.8 cm/sec MV E/A: 0.72 MV dec slope: LV dP/dt: 535.0 mmHg/s 484.1 cm/sec2 MV dec time: 0.22 sec PA V2 max: PI end-d jade: TR max jade: MV P1/2t-pr_phl: 61.2 cm/sec 169.8 cm/sec 287.8 cm/sec 67.5 msec PA max P.5 mmHg TR max P.1 mmHg Left Ventricle The left ventricle is normal in size. There is mild concentric left ventricular hypertrophy. LV EF is Greater than 65%. Left ventricular systolic function is normal. Doppler measurements suggest impaired left ventricular relaxation, which is associated with grade I/IV or mild diastolic dysfunction. The left ventricular wall motion is normal. There is no thrombus. No ASD,VSD , or PFO seen. Right Ventricle The right ventricle is normal in size and function. The right ventricle is not well visualized secondary to technical limitations. Atria The right atrium is normal. The left atrium is mildly dilated. Mitral Valve There is mild to moderate mitral annular calcification. Calcified mitral valve leadlet tips. There is no evidence of mitral valve prolapse. There is no vegetation seen on the mitral valve. There is mild mitral stenosis. There is a trace amount of mitral regurgitation. Aortic Valve There is no aortic valvular vegetation. There is no aortic valve stenosis. There is aortic sclerosis without aortic stenosis. There is no LVOT obstruction. There is a trace amount of aortic regurgitation. Tricuspid Valve There is no tricuspid stenosis. There is a trace to mild amount of tricuspid regurgitation. There is mild pulmonary hypertension by echo. RVSP is 38 to 43 mm of Hg , with RA mean of 5 to 10. Pulmonic Valve There is no pulmonic valvular stenosis. There is a trace amount of pulmonic regurgitation. Great Vessels The aortic root is not well visualized. The aortic root is normal size. The inferior vena cava appeared normal and decreased > 50% with respiration (RAP 5-10 mmHg). Effusions There is no pericardial effusion. : JUSTA MONZON Lakshmi
[2020-02-01] MEDS: ATORVASTATIN CALCIUM 20 MG TABLET PO SCH (21:21)
[2020-02-01] MEDS: LATANOPROST 0.005% OPH SOLN 2.5 ML OU SCH (21:25)
[2020-02-01] MEDS ORDERED: WARFARIN SODIUM 7.5 MG TABLET PO SCH (22:00)
[2020-02-01] MEDS: ACETAMINOPHEN 325 MG TABLET PO PRN (23:03)
[2020-02-02] MEDS: PIPERACILLIN SODIUM/TAZOBACTAM 3.375 GM in NORMAL SALINE 100 ML IV SCH ×3 (05:09→21:32)
[2020-02-02] MEDS: PANTOPRAZOLE SODIUM 40 MG TABLET.DR PO SCH ×2 (05:09→18:00)
[2020-02-02 06:45] LABS: ABSOLUTE LYMPHOCYTES (AUTO) 1.6 10^3/uL (0.5-4.7); ABSOLUTE MONOCYTES (AUTO) 0.9 10^3/uL (0.1-1.4); ABSOLUTE NEUT (AUTO) 2.5 10^3/uL (1.7-8.2); BASOPHILS % (AUTO) 0.4 % (0-2); EOSINOPHILS % (AUTO) 0.4 % (0-6); HEMATOCRIT 34.7 % (36.0-47.0); HEMOGLOBIN 11.4 g/dL (12.0-15.5); LYMPHOCYTES % (AUTO) 31.8 % (13-45); MEAN CORPUSCULAR HEMOGLOBIN 29.7 pg (27.0-33.4); MEAN CORPUSCULAR HGB CONC 32.8 g/dL (32.0-36.0); MEAN CORPUSCULAR VOLUME 90 fl (80-97); MONOCYTES % (AUTO) 18.4 % (3-13); PLATELET COUNT 179 10^3/uL (150-450); RED BLOOD COUNT 3.84 10^6/uL (3.72-5.28); RED CELL DISTRIBUTION WIDTH 14.3 % (11.5-14.0); TOTAL CELLS COUNTED % (AUTO) 100 %
[2020-02-02] MEDS ORDERED: WARFARIN SODIUM 5 MG PO SCH (06:55)
[2020-02-02 07:19] LABS: ALBUMIN 3.5 g/dL (3.5-5.0); ALKALINE PHOSPHATASE 106 U/L (38-126); ANION GAP 10 (5-19); ASPARTATE AMINO TRANSFERASE 28 U/L (14-36); BILIRUBIN,DIRECT 0.1 mg/dL (0.0-0.4); BILIRUBIN,TOTAL 2.3 mg/dL (0.2-1.3); BLOOD UREA NITROGEN 22 mg/dL (7-20); CARBON DIOXIDE 29 mmol/L (22-30); CHLORIDE 102 mmol/L (98-107); GLUCOSE 154 mg/dL (75-110); POTASSIUM 3.5 mmol/L (3.6-5.0); TOTAL PROTEIN 6.8 g/dL (6.3-8.2)
[2020-02-02] MEDS: INSULIN REG, HUMAN 100 UNIT/ML 3 ML VIAL (PYX) SUBCUT SCH ×4 (09:36→21:26)
[2020-02-02] MEDS: HYDROCHLOROTHIAZIDE 12.5 MG TABLET PO SCH (09:37)
[2020-02-02] MEDS: GUAIFENESIN 600 MG TABLET.SA PO SCH (09:38)
[2020-02-02] MEDS: CHOLECALCIFEROL (D3) 1,000 UNIT (25 MCG) TABLET PO SCH (09:38)
[2020-02-02] MEDS: GLIMEPIRIDE 4 MG TABLET PO SCH (09:38)
[2020-02-02] MEDS: LISINOPRIL 10 MG TABLET PO SCH (09:38)
[2020-02-02] MEDS: FUROSEMIDE INJ/PF 40 MG/4 ML SDV IV SCH (09:39)
[2020-02-02] MEDS: AMLODIPINE BESYLATE 10 MG TABLET PO SCH (09:39)
[2020-02-02] MEDS: SOTALOL HCL 80 MG TABLET PO SCH (09:43)
--- NOTE | 2020-02-02 13:50 | PDOC PROGRESS REPORT ---
Subjective Date:: 02/02/20 Subjective:: Resting comfortably on room air Reason For Visit: CHF EXACERBATION Physical Exam Vital Signs: Temp Pulse Resp BP Pulse Ox 98.2 F 80 20 127/56 H 94 02/02/20 08:05 02/02/20 08:05 02/02/20 08:05 02/02/20 08:05 02/02/20 08:05 Intake & Output 02/01/20 02/02/20 02/03/20 06:59 06:59 06:59 Intake Total 2236 1240 Output Total 875 200 Balance 1361 1040 Weight 112.8 kg 62.5 kg General appearance: PRESENT: cooperative, well-developed Head exam: PRESENT: atraumatic, normocephalic Eye exam: PRESENT: conjunctiva pink. ABSENT: scleral icterus Ear exam: PRESENT: normal external ear exam. ABSENT: bleeding, drainage Mouth exam: PRESENT: moist, tongue midline Neck exam: ABSENT: carotid bruit, JVD, lymphadenopathy Respiratory exam: PRESENT: clear to auscultation jeromy, symmetrical, unlabored. ABSENT: rales, rhonchi, tachypnea, wheezes Cardiovascular exam: PRESENT: RRR, +S1, +S2. ABSENT: bradycardia, diastolic murmur, irregular rhythm, systolic murmur, tachycardia GI/Abdominal exam: PRESENT: normal bowel sounds, soft. ABSENT: distended, guarding, tenderness Rectal exam: PRESENT: deferred Extremities exam: ABSENT: pedal edema Musculoskeletal exam: PRESENT: normal inspection. ABSENT: deformity, dislocation Neurological exam: PRESENT: alert, awake, oriented to person, oriented to place, oriented to time, oriented to situation, CN II-XII grossly intact. ABSENT: altered Psychiatric exam: PRESENT: appropriate affect. ABSENT: agitated, anxious Focused psych exam: ABSENT: delusional, paranoid, restlessness Skin exam: PRESENT: dry, normal color, warm. ABSENT: rash Results Laboratory Results: 02/02/20 06:14 02/02/20 06:14 02/01/20 02/02/20 02/02/20 16:50 06:14 06:14 WBC 5.0 RBC 3.84 Hgb 11.4 L Hct 34.7 L MCV 90 MCH 29.7 MCHC 32.8 RDW 14.3 H Plt Count 179 Seg Neutrophils % 49.0 Sodium 141.1 Potassium 3.5 L Chloride 102 Carbon Dioxide 29 Anion Gap 10 BUN 22 H Creatinine 1.15 Est GFR ( Amer) 55 L Glucose 154 H Calcium 9.0 Magnesium 1.7 Total Bilirubin 2.3 H AST 28 Alkaline Phosphatase 106 Total Protein 6.8 Albumin 3.5 Urine Color STRAW Urine Appearance CLEAR Urine pH 7.0 Ur Specific [place] 1.009 Urine Protein NEGATIVE Urine Glucose (UA) NEGATIVE Urine Ketones NEGATIVE Urine Blood SMALL H Urine Nitrite NEGATIVE Ur Leukocyte Esterase TRACE H Urine WBC (Auto) 2 Urine RBC (Auto) 1 01/31/20 08:15 Clean Catch Midstream Urine Culture - Final NO GROWTH 2 DAYS 01/31/20 01/31/20 01/31/20 02:28 02:28 12:43 Troponin I < 0.012 0.040 NT-Pro-B Natriuret Pep 616 H 01/31/20 01/31/20 02/01/20 15:45 22:35 05:36 Troponin I 0.032 0.024 NT-Pro-B Natriuret Pep 192 Impressions: Chest X-Ray 01/31/20 02:18 IMPRESSION: Bilateral opacities consistent with edema and/or pneumonia and differential diagnosis would include viral infections. Assessment and Plan - Diagnosis (1) Respiratory failure Qualifiers: Chronicity: acute Respiratory failure complication: hypoxia and hypercapnia Qualified Code(s): J96.01 - Acute respiratory failure with hypoxia; J96.02 - Acute respiratory failure with hypercapnia Is this a current diagnosis for this admission?: Yes (2) Pneumonia Qualifiers: Pneumonia type: due to unspecified organism Laterality: bilateral Lung location: unspecified part of lung Qualified Code(s): J18.9 - Pneumonia, unspecified organism Is this a current diagnosis for this admission?: Yes (3) Acute on chronic diastolic heart failure Is this a current diagnosis for this admission?: Yes (4) Diabetes Qualifiers: Diabetes mellitus type: type 2 Diabetes mellitus extermination supervisor insulin use: without extermination supervisor use Diabetes mellitus complication status: without complication Qualified Code(s): E11.9 - Type 2 diabetes mellitus without complications Is this a current diagnosis for this admission?: Yes (5) HTN (hypertension) Qualifiers: Hypertension type: essential hypertension Qualified Code(s): I10 - Essential (primary) hypertension Is this a current diagnosis for this admission?: Yes (6) Obesity (BMI 30-39.9) Is this a current diagnosis for this admission?: Yes (7) Hypokalemia Is this a current diagnosis for this admission?: Yes - Plan Summary Summary: (1) Respiratory failure Qualifiers: Chronicity: unspecified Respiratory failure complication: unspecified whether with hypoxia or hypercapnia Qualified Code(s): J96.90 - Respiratory failure, unspecified, unspecified whether with hypoxia or hypercapnia Is this a current diagnosis for this admission?: Yes Plan: 01/31/2020-patient is admitted for acute on chronic hypoxic respiratory failure. Patient is requiring BiPAP in the ER. Now on 6 L of nasal cannula. CT of the chest is negative for PE but suggestive of groundglass opacifications, pulmonary edema. She was given IV Lasix, IV antibiotic therapy. To continue her home medications. To hold Coumadin because INR is 2.95. To check PT/INR tomorrow and to restart warfarin based on the results. Daily weight is requested. To continue oxygen supplementations. Serial troponins are requested. COVID-19 test is pending. Patient does not want to be admitted at this time she wants to wait daughter to come in. Will make a decision whether to stay here prefers to go to another hospital. 02/01/[id number]-iybk-old female admitted with acute hypoxic respiratory failure. COVID-[address] of the chest is negative for PE but suggestive of groundglass opacifications and pulmonary edema. Pulse ox is 96% room air this morning vital signs are stable. Echocardiogram report is pending. (2) Pneumonia Qualifiers: Pneumonia type: due to unspecified organism Laterality: bilateral Lung location: unspecified part of lung Qualified Code(s): J18.9 - Pneumonia, unspecified organism Is this a current diagnosis for this admission?: Yes Plan: 01/31/2020-patient is going to be admitted to [facility] as inpatient. Started on IV Zosyn. Blood cultures urine cultures are requested. To continue oxygen supplementations. COVID-19 testing is pending at this time. 02/01/[id number] testing is negative. Patient is on IV Zosyn. Blood cultures are pending. Pulse ox is 96% room air patient is doing well. (3) Diabetes Is this a current diagnosis for this admission?: No Plan: 01/31/2020-patient has history of type 2 diabetes mellitus. To hold metformin and to continue glimepiride, started insulin sliding scale before meals and at bedtime. 02/01/2020-blood sugar this morning is 158. To continue glimepiride, continue saline sliding scale before meals and at bedtime. Hemoglobin A1c 6.8. (4) Obesity (BMI 30-39.9) Is this a current diagnosis for this admission?: No Plan: 01/31/2020-patient BMI is more than 38. Diet exercise weight loss lifestyle modifications discussed with the patient, dietary consult was provided. (5) HTN (hypertension) Is this a current diagnosis for this admission?: No Plan: 01/31/2020-patient has a history of chronic essential hypertension to restart home medications and she is also on Lasix 40 mg twice daily. Patient is on low- carb low-sodium diet. 02/01/2020-blood pressure is 124/55. Plan is to resume the home medications at this time. (6) Hypokalemia 02/02/2020 Pneumonia-most likely a viral pneumonitis with no elevated white count and no productive cough. Possibly combined with acute heart failure. Continue ant ibiotics at this time. Diastolic heart failure-likely acute on chronic. Echocardiogram shows normal ejection fraction with grade 1/4 diastolic failure. Continue furosemide as well as her lisinopril Hypertension-continue current medications including lisinopril, amlodipine and her sotalol. Furosemide was added for better control as well as heart failure. Continue cardiac diet Hypokalemia-mild. Will be continuing furosemide as an outpatient therefore and potassium supplementation. Diabetes mellitus type 2-continue glimepiride as well as controlled carbohydrate diet Respiratory failure-blood gases revealed mild hypercapnia as well as hypoxia. The patient required BiPAP initially but is doing well on room air. - Time Time Spent with patient: 15-24 minutes Medications reviewed and adjusted accordingly: Yes Anticipated Discharge Disposition: Home, Self Care Anticipated Discharge Timeframe: within 24 hours
--- NOTE | 2020-02-02 14:21 | CDI QUERY ---
CDI Query CDI Review: We are seeking further clarification of documentation to reflect the severity of illness of your patient. Per H&P: patient is admitted for acute on chronic hypoxic respiratory failure. Patient is requiring BiPAP in the ER. Now on 6 L of nasal cannula. CT of the chest is negative for PE but suggestive of groundglass opacifications, pulmonary edema. She was given IV Lasix, IV antibiotic therapy. Per Progress Notes: 02/01/[id number] testing is negative. Patient is on IV Zosyn. Based on your medical judgment, can you further clarify in the Progress Notes (and carry through to the Discharge Summary) the most likely or suspected underlying cause of the pneumonia: Gram negative pneumonia Aspiration pneumonia Viral pneumonia Other cause (please specify) None of the above / Not applicable Thank you for your consideration. IRVING WallsN RN Clinical Channel Manager Physician Advisor [email or web address]
[2020-02-02] MEDS: VANCOMYCIN HCL 1,500 MG in DEXTROSE 5%-WATER 250 ML IV SCH (15:47)
[2020-02-02] MEDS: LATANOPROST 0.005% OPH SOLN 2.5 ML OU SCH (21:32)
[2020-02-02] MEDS: ATORVASTATIN CALCIUM 20 MG TABLET PO SCH (21:32)
[2020-02-02] MEDS ORDERED: WARFARIN SODIUM 5 MG TABLET PO SCH (22:00)
[2020-02-03] MEDS: PANTOPRAZOLE SODIUM 40 MG TABLET.DR PO SCH (05:09)
[2020-02-03] MEDS: PIPERACILLIN SODIUM/TAZOBACTAM 3.375 GM in NORMAL SALINE 100 ML IV SCH (05:09)
[2020-02-03 06:35] LABS: INTERNATIONAL RATION (INR) 1.53; PROTHROMBIN TIME 18.5 SEC (11.4-15.4)
[2020-02-03] MEDS: HYDROCHLOROTHIAZIDE 12.5 MG TABLET PO SCH (08:39)
[2020-02-03] MEDS ORDERED: ENOXAPARIN SODIUM INJ 100 MG/1 ML DISP.SYRIN SUBCUT ONE (09:00)
[2020-02-03] MEDS: INSULIN REG, HUMAN 100 UNIT/ML 3 ML VIAL (PYX) SUBCUT SCH (09:38)
[2020-02-03] MEDS: GLIMEPIRIDE 4 MG TABLET PO SCH (09:39)
[2020-02-03] MEDS: LISINOPRIL 10 MG TABLET PO SCH (09:39)
[2020-02-03] MEDS: AMLODIPINE BESYLATE 10 MG TABLET PO SCH (09:39)
[2020-02-03] MEDS: GUAIFENESIN 600 MG TABLET.SA PO SCH (09:39)
[2020-02-03 09:40] VITALS: BP 115/49
[2020-02-03] MEDS: CHOLECALCIFEROL (D3) 1,000 UNIT (25 MCG) TABLET PO SCH (09:40)
[2020-02-03] MEDS: SOTALOL HCL 80 MG TABLET PO SCH (09:42)
--- NOTE | 2020-02-03 09:59 | PDOC DISCHARGE SUMMARY ---
Impression - Admit/DC Date/PCP Admission Date/Primary Care Provider: 01/31/20 10:50 TWYLA PACE MD Discharge Date: 02/03/20 - Discharge Diagnosis (1) Respiratory failure Is this a current diagnosis for this admission?: Yes (2) Pneumonia Is this a current diagnosis for this admission?: Yes (3) Acute on chronic diastolic heart failure Is this a current diagnosis for this admission?: Yes (4) Diabetes Is this a current diagnosis for this admission?: Yes (5) HTN (hypertension) Is this a current diagnosis for this admission?: Yes (6) Obesity (BMI 30-39.9) Is this a current diagnosis for this admission?: Yes (7) Hypokalemia Is this a current diagnosis for this admission?: Yes - Assessment Summary: (1) Respiratory failure Qualifiers: Chronicity: unspecified Respiratory failure complication: unspecified whether with hypoxia or hypercapnia Qualified Code(s): J96.90 - Respiratory failure, unspecified, unspecified whether with hypoxia or hypercapnia Is this a current diagnosis for this admission?: Yes Plan: 01/31/2020-patient is admitted for acute on chronic hypoxic respiratory failure. Patient is requiring BiPAP in the ER. Now on 6 L of nasal cannula. CT of the chest is negative for PE but suggestive of groundglass opacifications, pulmonary edema. She was given IV Lasix, IV antibiotic therapy. To continue her home medications. To hold Coumadin because INR is 2.95. To check PT/INR tomorrow and to restart warfarin based on the results. Daily weight is requested. To continue oxygen supplementations. Serial troponins are requested. COVID-19 test is pending. Patient does not want to be admitted at this time she wants to wait daughter to come in. Will make a decision whether to stay here prefers to go to another hospital. 02/01/[id number]-cvbg-old female admitted with acute hypoxic respiratory failure. COVID-[address] of the chest is negative for PE but suggestive of groundglass opacifications and pulmonary edema. Pulse ox is 96% room air this morning vital signs are stable. Echocardiogram report is pending. (2) Pneumonia Qualifiers: Pneumonia type: due to unspecified organism Laterality: bilateral Lung location: unspecified part of lung Qualified Code(s): J18.9 - Pneumonia, unspecified organism Is this a current diagnosis for this admission?: Yes Plan: 01/31/2020-patient is going to be admitted to [facility] as inpatient. Started on IV Zosyn. Blood cultures urine cultures are requested. To continue oxygen supplementations. COVID-19 testing is pending at this time. 02/01/[id number] testing is negative. Patient is on IV Zosyn. Blood cult ures are pending. Pulse ox is 96% room air patient is doing well. (3) Diabetes Is this a current diagnosis for this admission?: No Plan: 01/31/2020-patient has history of type 2 diabetes mellitus. To hold metformin and to continue glimepiride, started insulin sliding scale before meals and at bedtime. 02/01/2020-blood sugar this morning is 158. To continue glimepiride, continue saline sliding scale before meals and at bedtime. Hemoglobin A1c 6.8. (4) Obesity (BMI 30-39.9) Is this a current diagnosis for this admission?: No Plan: 01/31/2020-patient BMI is more than 38. Diet exercise weight loss lifestyle modifications discussed with the patient, dietary consult was provided. (5) HTN (hypertension) Is this a current diagnosis for this admission?: No Plan: 01/31/2020-patient has a history of chronic essential hypertension to restart home medications and she is also on Lasix 40 mg twice daily. Patient is on low- carb low-sodium diet. 02/01/2020-blood pressure is 124/55. Plan is to resume the home medications at this time. (6) Hypokalemia 02/02/2020 Pneumonia-most likely a viral pneumonitis with no elevated white count and no productive cough. Possibly combined with acute heart failure. Continue antibiotics at this time. Diastolic heart failure-likely acute on chronic. Echocardiogram shows normal ejection fraction with grade 1/4 diastolic failure. Continue furosemide as well as her lisinopril Hypertension-continue current medications including lisinopril, amlodipine and her sotalol. Furosemide was added for better control as well as heart failure. Continue cardiac diet Hypokalemia-mild. Will be continuing furosemide as an outpatient therefore and potassium supplementation. Diabetes mellitus type 2-continue glimepiride as well as controlled carbohydrate diet Respiratory failure-blood gases revealed mild hypercapnia as well as hypoxia. The patient required BiPAP initially but is doing well on room air. 02/03/2020 She has been stable on room air for over 24 hours. Diastolic failure is also stable. Serum potassium improving. Stable for discharge to home. We did discuss follow-up. She is going back to [place] to stay with her tomas payan until February 13. I told her she certainly would need to recheck her INR and electrolytes as soon as she returns. - Additional Information Resuscitation Status: Full Code Discharge Diet: Cardiac, Diabetic Discharge Activity: Activity As Tolerated, Balance Activity w/Rest, Weigh Daily Referrals: SHA KING MD [NO LOCAL MD] - 02/15/20 9:40 am Prescriptions: Cefuroxime Axetil [Ceftin 500 mg Tablet] 1 tab PO BID #14 tablet Furosemide [Lasix 40 mg Tablet] 40 mg PO QAM #15 tablet Potassium Chloride 20 meq PO DAILY #15 tablet.er Home Medications: Atorvastatin Calcium [Lipitor 20 mg Tablet] 20 mg PO QHS 09/22/15 Cholecalciferol (Vitamin D3) [Vitamin D3 5000 unit Capsule] 5,000 unit PO DAILY 09/22/15 Fexofenadine HCl [Deanne] 180 mg PO DAILYP PRN 09/22/15 Glimepiride [Amaryl] 2 mg PO DAILY 09/22/15 Guaifenesin [Mucinex] 1,200 mg PO DAILY 09/22/15 Latanoprost [Xalatan 0.005% Oph Soln 2.5 ml] 1 drop OU QHS 09/22/15 Lisinopril [Prinivil 40 mg Tablet] 40 mg PO DAILY 09/22/15 Metformin HCl [Glucophage XR 500 mg Tablet] 500 mg PO QAM 09/22/15 Sotalol HCl [Sotalol] 80 mg PO DAILY 09/22/15 Warfarin Sodium [Jantoven 5 mg Tablet] 10 mg PO SUTUWETH 09/22/15 Amlodipine Besylate [Norvasc 10 mg Tablet] 10 mg PO DAILY 01/31/20 Pantoprazole Sodium [Protonix [address] Tablet] 40 mg PO QAM 01/31/20 Warfarin Sodium [Jantoven] 7.5 mg PO MOFRSA 01/31/20 Acetaminophen [Tylenol 325 mg Tablet] 650 mg PO Q4HP PRN tablet 02/03/20 Cefuroxime Axetil [Ceftin 500 mg Tablet] 1 tab PO BID #14 tablet 02/03/20 Furosemide [Lasix 40 mg Tablet] 40 mg PO QAM #15 tablet 02/03/20 Potassium Chloride 20 meq PO DAILY #15 tablet.er 02/03/20 History of Present Illiness History of Present Illness: RYAN DUGGAN is a 79 year old female with a history of hypertension diabetes mellitus, coronary artery disease with a blockage, pacemaker, obesity to the emergency room with complaints of increasing shortness of breath. Pulse ox is in the 50s at the time of arrival she was placed on BiPAP. CT of the chest was done negative for PE but that shows groundglass opacifications and a questionable pulmonary edema recommendation to rule out Covid. 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 INR is 2.95. At the time of my examination patient is on BiPAP she does not want to be on BiPAP anymore. Patient was given IV fluids initially then she was given Lasix. started on IV Zosyn. Hospital Course Hospital Course: As above Physical Exam Vital Signs: Temp Pulse Resp BP Pulse Ox 98.0 F 72 16 115/49 L 95 02/03/20 07:50 02/03/20 07:50 02/03/20 07:50 02/03/20 07:50 02/03/20 07:50 Intake & Output 02/02/20 02/03/20 02/04/20 06:59 06:59 06:59 Intake Total 1240 787 Output Total 200 Balance 1040 787 Weight 62.5 kg 106.3 kg General appearance: PRESENT: no acute distress Respiratory exam: PRESENT: clear to auscultation jeromy. ABSENT: rales, rhonchi, wheezes Cardiovascular exam: PRESENT: RRR, +S1, +S2 GI/Abdominal exam: PRESENT: normal bowel sounds, soft. ABSENT: tenderness Neurological exam: PRESENT: alert, awake, oriented to person, oriented to place, oriented to time, oriented to situation, CN II-XII grossly intact. ABSENT: altered Psychiatric exam: PRESENT: appropriate affect. ABSENT: agitated, anxious Results Laboratory Results: WBC 5.0 10^3/uL (4.0-10.5) 02/02/20 06:14 RBC 3.84 10^6/uL (3.72-5.28) 02/02/20 06:14 Hgb 11.4 g/dL (12.0-15.5) L 02/02/20 06:14 Hct 34.7 % (36.0-47.0) L 02/02/20 06:14 MCV 90 fl (80-97) 02/02/20 06:14 MCH 29.7 pg (27.0-33.4) 02/02/20 06:14 MCHC 32.8 g/dL (32.0-36.0) 02/02/20 06:14 RDW 14.3 % (11.5-14.0) H 02/02/20 06:14 Plt Count 179 10^3/uL (150-450) 02/02/20 06:14 Lymph % (Auto) 31.8 % (13-45) 02/02/20 06:14 [place] % (Auto) 18.4 % (3-13) H 02/02/20 06:14 Eos % (Auto) 0.4 % (0-6) 02/02/20 06:14 Baso % (Auto) 0.4 % (0-2) 02/02/20 06:14 Absolute Neuts (auto) 2.5 10^3/uL (1.7-8.2) 02/02/20 06:14 Absolute Lymphs (auto) 1.6 10^3/uL (0.5-4.7) 02/02/20 06:14 Absolute Monos (auto) 0.9 10^3/uL (0.1-1.4) 02/02/20 06:14 Absolute Eos (auto) 0.0 10^3/uL (0.0-0.6) 02/02/20 06:14 Absolute Basos (auto) 0.0 10^3/uL (0.0-0.2) 02/02/20 06:14 Total Counted 100 01/31/20 02:28 Seg Neutrophils % 49.0 % (42-78) 02/02/20 06:14 Seg Neuts % (Manual) 62 % (42-78) 01/31/20 02:28 Lymphocytes % (Manual) 28 % (13-45) 01/31/20 02:28 Atypical Lymphs % 2 % (0) 01/31/20 02:28 Monocytes % (Manual) 8 % (3-13) 01/31/20 02:28 Eosinophils % (Manual) 0 % (0-6) 01/31/20 02:28 Basophils % (Manual) 0 % (0-2) 01/31/20 02:28 Abs Neuts (Manual) 4.0 10^3/uL (1.7-8.2) 01/31/20 02:28 Abs Lymphs (Manual) 2.0 10^3/uL (0.5-4.7) 01/31/20 02:28 Abs Monocytes (Manual) 0.5 10^3/uL (0.1-1.4) 01/31/20 02:28 Absolute Eos (Manual) 0.0 10^3/uL (0.0-0.6) 01/31/20 02:28 Abs Basophils (Manual) 0.0 10^3/uL (0.0-0.2) 01/31/20 02:28 Platelet Comment ADEQUATE 01/31/20 02:28 Anisocytosis SLIGHT 01/31/20 02:28 Target Cells SLIGHT 01/31/20 02:28 Ovalocytes SLIGHT 01/31/20 02:28 PT 18.5 SEC (11.4-15.4) H 02/03/20 05:58 INR 1.53 02/03/20 05:58 Carbonic Acid 1.03 mmol/L (1.05-1.35) L 01/31/20 13:07 HCO3/H2CO3 Ratio 22:1 01/31/20 13:07 ABG pH 7.45 (7.35-7.45) 01/31/20 13:07 ABG pCO2 34.1 mmHg (35-45) L 01/31/20 13:07 ABG pO2 59.7 mmHg (80-100) L 01/31/20 13:07 ABG HCO3 23.1 mmol/L (20-24) 01/31/20 13:07 ABG Total CO2 24.2 mmol/L (21-25) 01/31/20 13:07 ABG O2 Saturation 92.2 % (94-98) L 01/31/20 13:07 ABG Base Excess -0.3 mmol/L 01/31/20 13:07 FiO2 ROOM AIR 01/31/20 13:07 Sodium 141.1 mmol/L (137-145) 02/02/20 06:14 Potassium 3.5 mmol/L (3.6-5.0) L 02/02/20 06:14 Chloride 102 mmol/L (98-107) 02/02/20 06:14 Carbon Dioxide 29 mmol/L (22-30) 02/02/20 06:14 Anion Gap 10 (5-19) 02/02/20 06:14 BUN 22 mg/dL (7-20) H 02/02/20 06:14 Creatinine 1.15 mg/dL (0.52-1.25) 02/02/20 06:14 Est GFR ( Amer) 55 (>60) L 02/02/20 06:14 Est GFR (MDRD) Non-Af 46 (>60) L 02/02/20 06:14 Glucose 154 mg/dL (75-110) H 02/02/20 06:14 POC Glucose 172 mg/dL (70-110) H 02/03/20 07:51 Hemoglobin A1c % 6.8 % (4.7-6.0) H 02/01/20 05:36 Lactic Acid 1.6 mmol/L (0.7-2.1) 01/31/20 06:39 Calcium 9.0 mg/dL (8.4-10.2) 02/02/20 06:14 Magnesium 1.7 mg/dL (1.6-2.3) 02/02/20 06:14 Total Bilirubin 2.3 mg/dL (0.2-1.3) H 02/02/20 06:14 Direct Bilirubin 0.1 mg/dL (0.0-0.4) 02/02/20 06:14 Neonat Total Bilirubin Not Reportable 02/02/20 06:14 Neonat Direct Bilirubin Not Reportable 02/02/20 06:14 Neonat Indirect Bili Not Reportable 02/02/20 06:14 AST 28 U/L (14-36) 02/02/20 06:14 ALT 28 U/L (<35) 02/02/20 06:14 Alkaline Phosphatase 106 U/L (38-126) 02/02/20 06:14 Troponin I 0.024 ng/mL 01/31/20 22:35 NT-Pro-B Natriuret Pep 192 pg/mL (<450) 02/01/20 05:36 Total Protein 6.8 g/dL (6.3-8.2) 02/02/20 06:14 Albumin 3.5 g/dL (3.5-5.0) 02/02/20 06:14 Triglycerides 82 mg/dL (<150) 02/01/20 05:36 Cholesterol 117.44 mg/dL (0-200) 02/01/20 05:36 LDL Cholesterol Direct 44 mg/dL (<100) 02/01/20 05:36 VLDL Cholesterol 16.0 mg/dL (10-31) 02/01/20 05:36 HDL Cholesterol 49 mg/dL (>40) 02/01/20 05:36 TSH 0.64 uIU/mL (0.47-4.68) 02/01/20 05:36 Urine Color STRAW 02/01/20 16:50 Urine Appearance CLEAR 02/01/20 16:50 Urine pH 7.0 (5.0-9.0) 02/01/20 16:50 Ur Specific [place] 1.009 02/01/20 16:50 Urine Protein NEGATIVE mg/dL (NEGATIVE) 02/01/20 16:50 Urine Glucose (UA) NEGATIVE mg/dL (NEGATIVE) 02/01/20 16:50 Urine Ketones NEGATIVE mg/dL (NEGATIVE) 02/01/20 16:50 Urine Blood SMALL (NEGATIVE) H 02/01/20 16:50 Urine Nitrite NEGATIVE (NEGATIVE) 02/01/20 16:50 Urine Nitrite (Reflex) NEGATIVE (NEGATIVE) 01/31/20 08:15 Urine Bilirubin NEGATIVE (NEGATIVE) 02/01/20 16:50 Urine Urobilinogen NEGATIVE mg/dL (<2.0) 02/01/20 16:50 Ur Leukocyte Esterase TRACE (NEGATIVE) H 02/01/20 16:50 Leukocyte Esterase Rfl TRACE (NEGATIVE) H 01/31/20 08:15 Urine WBC (Auto) 2 /HPF 02/01/20 16:50 Urine RBC (Auto) 1 /HPF 02/01/20 16:50 U Hyaline Cast (Auto) 1 /LPF 01/31/20 08:15 Urine Bacteria (Auto) TRACE /HPF 02/01/20 16:50 Urine WBC (Reflex) 1 /HPF 01/31/20 08:15 Squamous Epi Cells Auto 1 /HPF 02/01/20 16:50 Urine Mucus (Auto) RARE /LPF 02/01/20 16:50 Urine Ascorbic Acid NEGATIVE (NEGATIVE) 02/01/20 16:50 Urine Opiates Screen NEGATIVE 01/31/20 09:00 Urine Methadone Screen NEGATIVE 01/31/20 09:00 Ur Barbiturates Screen NEGATIVE 01/31/20 09:00 Ur Phencyclidine Scrn NEGATIVE 01/31/20 09:00 Ur Amphetamines Screen NEGATIVE 01/31/20 09:00 U Benzodiazepines Scrn NEGATIVE 01/31/20 09:00 Urine Cocaine Screen NEGATIVE 01/31/20 09:00 U Marijuana (THC) Screen NEGATIVE 01/31/20 09:00 COVID-19 Source Cancelled 01/31/20 09:30 COVID-19 (MICHELLE) Cancelled 01/31/20 09:30 Influenza A (Rapid) NEGATIVE (NEGATIVE) 01/31/20 09:30 Influenza A (RT-PCR) NEGATIVE (NEGATIVE) 01/31/20 09:30 Influenza B (Rapid) NEGATIVE (NEGATIVE) 01/31/20 09:30 Influenza B (RT-PCR) NEGATIVE (NEGATIVE) 01/31/20 09:30 RSV (RT-PCR) NEGATIVE (NEGATIVE) 01/31/20 09:30 SARS-CoV-2 Rap RNA(RT-PCR) NEGATIVE (NEGATIVE) 01/31/20 09:30 01/31/20 01/31/20 01/31/20 02:28 02:28 12:43 Troponin I < 0.012 0.040 NT-Pro-B Natriuret Pep 616 H 01/31/20 01/31/20 02/01/20 15:45 22:35 05:36 Troponin I 0.032 0.024 NT-Pro-B Natriuret Pep 192 Impressions: Chest X-Ray 01/31/20 02:18 IMPRESSION: Bilateral opacities consistent with edema and/or pneumonia and differential diagnosis would include viral infections. Plan Health Concerns: Subtherapeutic INR at the time of discharge Need for repeat electrolyte studies now that she is on furosemide and potassium and not her hydrochlorothiazide Plan of Treatment: Medication changes as noted above. Follow-up with PCP as soon as she returns from [place]. Goals: Complete resolution of heart failure exacerbation Time Spent: Greater than 30 Minutes Stroke Is this a Stroke Patient?: No Acute Heart Failure Is this a Heart Failure Patient?: Yes Documentation of LVEF assessment?: Yes LVEF: LVEF Greater Than 40% Anticoagulant Therapy: Yes Discharged on Evidence-Based Beta Blockers: No, document contraindications Reason(s) not discharged on Evidence-Based Beta Blockers: Other - Already on sotalol Beta Seamus Reason - Other: Already on sotalol Discharged on ARNI?: No-Document Contraindications Reason(s) not discharged on ARNI: ACEI use within the prior 36 hours Discharged on ARB?: No-document contraindications Reason(s) not Discharged on ARB: Other ARB Reason - Other: On lisinopril Discharged on ACEI?: Yes For LVEF <35%, discharged on Aldosterone Antagonist?: N/A (LVEF > or = 35%) Follow-up Appointment scheduled within 7 days?: No, document reason - Patient will be away for the holidays. Has follow-up within 10 days
[2020-02-03 11:58] LABS: APPEARANCE,URINE CLEAR; BILIRUBIN,URINE NEGATIVE (NEGATIVE); COLOR,URINE YELLOW; GLUCOSE, URINE NEGATIVE (NEGATIVE); KETONES,URINE NEGATIVE (NEGATIVE); LEUKOCYTE ESTERASE,URINE NEGATIVE (NEGATIVE); NITRITE,URINE NEGATIVE (NEGATIVE); PROTEIN,URINE NEGATIVE (NEGATIVE); URINE SPECIFIC GRAVITY 1.018; UROBILINOGEN,URINE NEGATIVE mg/dL (<2.0)
== END 2020-02-03 11:55 | disposition home or self-care (01) | DRG 189 ==
LOC: ER 02:04 → EH 10:50 → 3S 14:36
PROVIDERS: ADMIT Internal Medicine; ATTEND Hospitalist
PROC: 5A09357 Assistance with Respiratory Ventilation, Less than 24 Consecutive Hours, Continuous Positive Airway Pressure (ICD-10-PCS; principal; 2020-01-31)
PROC: B24BZZ4 Ultrasonography of Heart with Aorta, Transesophageal (ICD-10-PCS; 2020-02-01)
DX: J96.01 Acute respiratory failure with hypoxia (principal); J12.9 Viral pneumonia, unspecified; I50.33 Acute on chronic diastolic (congestive) heart failure; J96.02 Acute respiratory failure with hypercapnia; I11.0 Hypertensive heart disease with heart failure; Z20.828 Contact with and (suspected) exposure to other viral communicable diseases; E11.9 Type 2 diabetes mellitus without complications; E66.9 Obesity, unspecified; I25.10 Atherosclerotic heart disease of native coronary artery without angina pectoris; E87.6 Hypokalemia; R79.1 Abnormal coagulation profile; Z68.38 Body mass index [BMI] 38.0-38.9, adult; Z79.84 Long term (current) use of oral hypoglycemic drugs; Z95.0 Presence of cardiac pacemaker; Z86.711 Personal history of pulmonary embolism; Z79.01 Long term (current) use of anticoagulants
CPT/HCPCS: 36415; 36600; 71045; 71275; 80053; 80061; 80307; 81001; 82803; 82962; 83036; 83605; 83735; 83880; 84443; 84484; 85025; 85610; 87040; 87086; 87804; 93005; 93010; 93306; 96361; 96365; 99291; 0241U; C9803; J1650; J1815; J1940; J2543; J3370; J3490; J7030; J7050; J7060